=== PATIENT | female | born 1985 | race Caucasian/White ===

== ENCOUNTER 2017-09-23 14:35 | Outpatient (CLI) | payer OTHER ==
--- NOTE | 2017-09-23 17:17 | ULT ---
COMPLETE ULTRASOUND GREATER THAN 14 WEEKS: 09/23/17 HISTORY: Initial OB ultrasound, size and dates. A single viable intrauterine fetus noted in vertex presentation. The placenta is anterior. Amniotic f luid is within normal limits. heart rate is 140 beats per minute. The cervical length approxima mya 3.8 cm. ANATOMY: Visualized brain, four chamber heart, three vessel cord, stomach, bladder, kidneys, spine and e xtremities are unremarkable as visualized. BIOMETRY: BPD 4.6 cm - - 19 weeks, 5 days Head circumference 17.2 cm - - 19 weeks, 5 days Abdominal circumference 13.6 cm - - 19 weeks, 0 days Femur length 3.0 cm - - 19 weeks, 2 days IMPRESSION: Single viable intrauterine fetus at 19 weeks, 3 days gestation. EDC 02/14/18. Estimated weight 28 1 grams, 42nd percentile. POS: [facility]
== END 2017-09-23 14:36 | disposition home or self-care (01) ==
LOC: ULT 14:35
PROVIDERS: ATTEND Family Medicine
DX: Z34.82 Encounter for supervision of other normal pregnancy, second trimester (principal); Z3A.19 19 weeks gestation of pregnancy
CPT/HCPCS: 76805

== ENCOUNTER 2018-02-07 14:34 | Inpatient (IN) | payer OTHER ==
[~2018-02-07 14:34] MED LIST: Lidocaine 2% MPF 10 ML AMP (For Epidural Use) ONE
[2018-02-07] MEDS ORDERED: Lidocaine 1% (PF) 30 ML VIAL SC PRN (22:04)
[2018-02-07] MEDS ORDERED: Ibuprofen 800 MG TAB PO PRN (22:04)
[2018-02-07] MEDS ORDERED: Ondansetron HCl/PF 4 MG/2 ML Vial IVP PRN (22:04)
[2018-02-07] MEDS ORDERED: Misoprostol 200 MCG TAB PR PRN (22:04)
[2018-02-07] MEDS ORDERED: Acetaminophen 500 MG TAB PO PRN (22:04)
[2018-02-07] MEDS ORDERED: NS / Oxytocin 40 units/1000ml 1,000 ML IV PRN (22:04)
[2018-02-07] MEDS ORDERED: Promethazine HCl 25 MG/ML VIAL IM PRN (22:04)
[2018-02-07] MEDS ORDERED: Butorphanol Tartrate 1 MG/ML VIAL SLOW IVP PRN (22:04)
[2018-02-07] MEDS ORDERED: Acetaminophen/Codeine 30-300mg Tablet PO PRN (22:04)
[2018-02-07] MEDS ORDERED: HYDROcodone/Acetaminophen 5/325 mg Tablet PO PRN (22:04)
[2018-02-07] MEDS ORDERED: NS w/ Oxytocin 10 units 500 ML IV SCH (22:04)
[2018-02-07] MEDS ORDERED: Penicillin G Potassium 5 MILL.UNITS in Sodium Chloride 0.9% 100 ML IVPB SCH (22:30)
[2018-02-07] MEDS: Lactated Ringer's 1,000 ML IV SCH (22:30)
[2018-02-07 22:46] LABS: Hemoglobin 13.1 g/dL (12.0-16.0); Mean Corpuscular HGB CONC 34.3 g/dL (32.0-36.0); Mean Corpuscular Hemoglobin 31.5 pg (27.0-31.0); Mean Corpuscular Volume 91.8 fL (78.0-98.0); Mean Platelet Volume 8.2 fL (7.4-10.4); Platelet Count 228 thou/uL (130-400); RBC Distribution Width 11.9 % (11.5-14.5); Red Blood Cell (RBC) Count 4.16 mill/uL (4.20-5.40); White Blood Cell (WBC) Count 7.4 thou/uL (4.8-10.8)
[2018-02-07 23:24] LABS: Syphilis Antibody Nonreactive (Nonreactive); Syphilis Antibody Index 0.09 S/CO (<1.00 Non-Reactive)
[2018-02-08 00:46] LABS: HBSAg Index 0.18 S/CO (0-0.99); Hep B Surf Ag Non-Reactive S/CO (NonReactive)
[2018-02-08] MEDS: NS w/ Oxytocin 10 units 500 ML IV SCH ×2 (00:51→03:08)
[2018-02-08] MEDS: Penicillin G 2.5 MILL.units 2.5 MILL.UNITS in Premix Bag 1 BAG IVPB SCH ×3 (03:08→13:10)
[2018-02-08] MEDS ORDERED: DISCONTINUE ALL PREVIOUS NARCOTICS FS SCH (05:00)
[2018-02-08] MEDS ORDERED: Bupivacaine 0.75% 13.4 ML, fentaNYL Citrate/PF 400 MCG in Sodium Chloride 0.9% 78.6 ML EPIDURAL SCH (05:00)
[2018-02-08] MEDS: Lactated Ringer's 1,000 ML IV SCH (05:53)
[2018-02-08] MEDS ORDERED: ePHEDrine/0.9% NaCl/PF SYRINGE 50 mg/10 ml SLOW IVP PRN (05:54)
[2018-02-08] MEDS ORDERED: Lactated Ringer's 500 ML IV PRN (05:54)
[2018-02-08] MEDS ORDERED: Naloxone HCl 0.4 mg/ml Vial IVP PRN ×2 (05:54)
[2018-02-08] MEDS ORDERED: Promethazine HCl 25 MG/ML VIAL IM PRN (05:54)
[2018-02-08] MEDS ORDERED: diphenhydrAMINE 50 MG/ML VIAL IVP PRN (05:54)
[2018-02-08] MEDS ORDERED: Acetaminophen 325 MG TAB PO PRN (05:54)
[2018-02-08] MEDS ORDERED: Eucerin (Mineral Oil/Petrolatum,White) 30 gm Jar TOP PRN (05:54)
[2018-02-08] MEDS ORDERED: Ondansetron HCl/PF 4 MG/2 ML Vial IVP PRN ×2 (05:54→11:21)
[2018-02-08] MEDS ORDERED: fentaNYL Citrate/PF 400 MCG, Bupivacaine 0.5% 20 ML in Sodium Chloride 0.9% 72 ML EPIDURAL SCH (06:00)
[2018-02-08] MEDS ORDERED: Communication Order-Pharmacy FS SCH (06:00)
[2018-02-08] MEDS ORDERED: Methylergonovine 0.2 MG/ML VIAL ONE (07:37)
[2018-02-08] MEDS ORDERED: Lanolin Ointment 7 GM TUBE TOP PRN (11:21)
[2018-02-08] MEDS ORDERED: HYDROcodone/Acetaminophen 5/325 mg Tablet PO PRN (11:21)
[2018-02-08] MEDS ORDERED: Milk Of Magnesia 30 ML UDCUP PO PRN (11:21)
[2018-02-08] MEDS ORDERED: Preparation H Ointment 28 GM TUBE PR PRN (11:21)
[2018-02-08] MEDS ORDERED: Bisacodyl 10 MG SUPP PR PRN (11:21)
[2018-02-08] MEDS ORDERED: diphenhydrAMINE 25 MG CAP PO PRN (11:21)
[2018-02-08] MEDS ORDERED: Benzocaine/Menthol 20-0.5% 60 ML CAN TOP PRN (11:21)
[2018-02-08] MEDS ORDERED: Acetaminophen/Codeine 30-300mg Tablet PO PRN (11:21)
[2018-02-08] MEDS ORDERED: NS / Oxytocin 40 units/1000ml 1,000 ML IV SCH (11:21)
[2018-02-08] MEDS ORDERED: Prenatal Vitamin 1 TAB PO SCH (11:45)
[2018-02-08] MEDS ORDERED: Docusate Calcium (SURFAK) 240 MG CAP PO SCH (11:45)
[2018-02-08] MEDS ORDERED: Ferrous Sulfate 325 MG TAB PO SCH (11:45)
[2018-02-08] MEDS: Ibuprofen 800 MG TAB PO SCH ×2 (14:05→20:36)
[2018-02-08] MEDS: Ferrous Sulfate 325 MG TAB PO SCH (15:55)
[2018-02-08] MEDS: Docusate Calcium (SURFAK) 240 MG CAP PO SCH (20:36)
[2018-02-09] MEDS: Ibuprofen 800 MG TAB PO SCH (06:23)
[2018-02-09 08:13] VITALS: BP 110/59; TEMP 98.2
[2018-02-09] MEDS: Ferrous Sulfate 325 MG TAB PO SCH (08:34)
[2018-02-09] MEDS: Docusate Calcium (SURFAK) 240 MG CAP PO SCH (08:34)
[2018-02-09] MEDS ORDERED: Prenatal Vitamin 1 TAB PO SCH (09:00)
== END 2018-02-09 12:18 | disposition home or self-care (01) | DRG 775 ==
LOC: L&D 22:00 → 3SW 02-08 10:55
PROVIDERS: ADMIT Family Medicine; ATTEND Family Medicine
PROC: 10E0XZZ Delivery of Products of Conception, External Approach (ICD-10-PCS; principal; 2018-02-08)
PROC: 10907ZC Drainage of Amniotic Fluid, Therapeutic from Products of Conception, Via Natural or Artificial Opening (ICD-10-PCS; 2018-02-08)
DX: O36.5930 Maternal care for other known or suspected poor fetal growth, third trimester, not applicable or unspecified (principal); O34.211 Maternal care for low transverse scar from previous cesarean delivery; O70.0 First degree perineal laceration during delivery; Z3A.38 38 weeks gestation of pregnancy; Z37.0 Single live birth
CPT/HCPCS: 36415; 51702; 85027; 86780; 86850; 86900; 86901; 87340; J2001; J2210; J2540; J3010; J7050

== ENCOUNTER 2019-05-09 10:57 | Outpatient (CLI) | payer OTHER ==
--- NOTE | 2019-05-09 12:57 | ULT ---
US OB Complete STANDARD History: Evaluate anatomy Comparison: OB ultrasound September 23, 2017 Findings: Real-time grayscale, color, and spectral analysis of the gravid uterus was performed transa bdominal approach. Single viable intrauterine with average ultrasound age 21 week 4 day with estimated date of delivery September 25, 2019. Estimated weight is 15 ounces, 77th percentile. Biometry: Biparietal diameter: 21 week 5 day, 5.19 cm, 77th percentile Head circumference: 21 week 0 day, 18.66 cm, 40th percentile Abdominal circumference: 21 week 4 day, 16.48 cm, 61st percentile Femur length: 21 weeks 6 day, 3.71 cm, 70th percentile heart rate documented at 147 bpm. Amniotic fluid index: 14.2 cm Anatomy: The spine, bladder, diaphragm, kidneys, stomach, lateral ventricles, cerebellum, three-vesse l cord, posterior fossa, nose/lips, four-chamber heart, stomach are all normal. The placenta is posterior and the position is vertex. Impression: Normal single viable intrauterine .
== END 2019-05-09 10:58 | disposition home or self-care (01) ==
LOC: SCSULT 10:57
PROVIDERS: ATTEND Family Medicine
DX: Z34.82 Encounter for supervision of other normal pregnancy, second trimester (principal); Z3A.21 21 weeks gestation of pregnancy
CPT/HCPCS: 76805

== ENCOUNTER 2019-08-10 10:37 | Inpatient (IN) | payer OTHER ==
[2019-09-15] MEDS ORDERED: hydrALAZINE 20 MG/ML VIAL SLOW IVP PRN (14:41)
[2019-09-15] MEDS ORDERED: Ibuprofen 800 MG TAB PO PRN (14:41)
[2019-09-15] MEDS ORDERED: Promethazine HCl 25 MG/ML VIAL IM PRN ×2 (14:41→18:17)
[2019-09-15] MEDS ORDERED: Lidocaine 1% (PF) 30 ML VIAL SC PRN (14:41)
[2019-09-15] MEDS ORDERED: NS w/ Oxytocin 10 units 500 ML IV SCH ×2 (14:41)
[2019-09-15] MEDS ORDERED: Ondansetron PF 4 MG/2 ML Vial IVP PRN ×2 (14:41→18:17)
[2019-09-15] MEDS ORDERED: HYDROcodone/Acetaminophen 5/325 mg Tablet PO PRN (14:41)
[2019-09-15] MEDS ORDERED: Misoprostol 200 MCG TAB PR PRN (14:41)
[2019-09-15] MEDS ORDERED: Acetaminophen 500 MG TAB PO PRN (14:41)
[2019-09-15] MEDS ORDERED: Butorphanol Tartrate 1 MG/ML VIAL SLOW IVP PRN (14:41)
[2019-09-15] MEDS ORDERED: Methylergonovine 0.2 MG/ML VIAL IM PRN (14:41)
[2019-09-15] MEDS ORDERED: Acetaminophen/Codeine 30-300mg Tablet PO PRN (14:41)
[2019-09-15] MEDS ORDERED: NS / Oxytocin 40 units/1000ml 1,000 ML IV PRN (14:41)
[2019-09-15] MEDS ORDERED: Penicillin G Potassium 5 MILL.UNITS in Sodium Chloride 0.9% 100 ML IVPB SCH (14:45)
[2019-09-15 15:07] VITALS: BMI 26.6
[2019-09-15 15:21] LABS: Hemoglobin 12.2 g/dL (12.0-16.0); Mean Corpuscular Hemoglobin 30.7 pg (27.0-31.0); Mean Corpuscular Volume 90.2 fL (78.0-98.0); Mean Platelet Volume 9.1 fL (7.4-10.4); Platelet Count 227 thou/uL (130-400); Red Blood Cell (RBC) Count 3.99 mill/uL (4.20-5.40); White Blood Cell (WBC) Count 8.1 thou/uL (4.8-10.8)
[2019-09-15] MEDS: Lactated Ringer's 1,000 ML IV SCH ×2 (16:06→19:23)
[2019-09-15 16:07] LABS: HBSAg Index 0.33 S/CO (0-0.99); Hep B Surf Ag Non-Reactive S/CO (NonReactive)
[2019-09-15 16:14] LABS: Syphilis Antibody Nonreactive (Nonreactive); Syphilis Antibody Index 0.06 S/CO (<1.00 Non-Reactive)
[2019-09-15] MEDS ORDERED: Fentanyl 100 MCG/2 ML VIAL ONE (17:37)
[2019-09-15] MEDS ORDERED: Bupivacaine 0.5% 10 ML VIAL ONE (17:37)
[2019-09-15] MEDS ORDERED: Fentanyl 4 mcg/Bup 0.1% Cadd 100 ML ONE (17:38)
[2019-09-15] MEDS ORDERED: Fentanyl 100 MCG/2 ML VIAL I-THECAL ONE (18:16)
[2019-09-15] MEDS ORDERED: EPHEDRINE 25 MG/5 ML SYRINGE SLOW IVP PRN (18:17)
[2019-09-15] MEDS ORDERED: diphenhydrAMINE 50 MG/ML VIAL IVP PRN (18:17)
[2019-09-15] MEDS ORDERED: Acetaminophen 325 MG TAB PO PRN (18:17)
[2019-09-15] MEDS ORDERED: Naloxone HCl 0.4 mg/ml Vial IVP PRN ×2 (18:17)
[2019-09-15] MEDS ORDERED: Lactated Ringer's 500 ML IV PRN (18:17)
[2019-09-15] MEDS ORDERED: Bupivacaine 0.25% 10 ML VIAL EPIDURAL ONE (18:17)
[2019-09-15] MEDS ORDERED: Communication Order-Pharmacy FS SCH (18:30)
[2019-09-15] MEDS: Penicillin G 2.5 MILL.units 2.5 MILL.UNITS in Premix Bag 1 BAG IVPB SCH (19:57)
[2019-09-16] MEDS ORDERED: diphenhydrAMINE 25 MG CAP PO PRN (01:17)
[2019-09-16] MEDS ORDERED: Benzocaine-Menthol 82.5 ML CAN TOP PRN (01:17)
[2019-09-16] MEDS ORDERED: Bisacodyl 10 MG SUPP PR PRN (01:17)
[2019-09-16] MEDS ORDERED: HYDROcodone/Acetaminophen 5/325 mg Tablet PO PRN (01:17)
[2019-09-16] MEDS ORDERED: Milk Of Magnesia 30 ML UDCUP PO PRN (01:17)
[2019-09-16] MEDS ORDERED: Ondansetron PF 4 MG/2 ML Vial IVP PRN (01:17)
[2019-09-16] MEDS ORDERED: Lanolin Ointment 7 GM TUBE TOP PRN (01:17)
[2019-09-16] MEDS ORDERED: Acetaminophen/Codeine 30-300mg Tablet PO PRN (01:17)
[2019-09-16] MEDS ORDERED: Preparation H Ointment 28 GM TUBE PR PRN (01:17)
[2019-09-16] MEDS ORDERED: NS / Oxytocin 40 units/1000ml 1,000 ML IV SCH (01:17)
[2019-09-16] MEDS ORDERED: hydrALAZINE 20 MG/ML VIAL SLOW IVP PRN (01:17)
[2019-09-16] MEDS ORDERED: Docusate Calcium (SURFAK) 240 MG CAP PO SCH (01:30)
--- NOTE | 2019-09-16 03:34 | PDOC.PP ---
Post Progress Note Post Day #: 0 to 1 Subjective: doing well, still in L&D PO intake tolerated: yes Flatus: yes Ambulation: yes Weight Weight 170 lb Vitals reviewed in QS Occasional BPs of 140-150 noted but last was wnl - Physical Examination General: NAD Respiratory: non-labored breathing Abdominal: no distention, appropriately TTP Extremities: negative homans (B) Neurological: no gross focal deficits Psychiatric: A&Ox3, normal affect Result Diagrams: 09/15/19 15:03 Additional Labs: Post Labs Blood Type O POSITIVE 09/15/19 15:03 Hep Bs Antigen Non-Reactive S/CO (NonReactive) 09/15/19 15:03 (1) Vaginal delivery Code(s): O80 - ENCOUNTER FOR FULL-TERM UNCOMPLICATED DELIVERY Status: Acute (2) (vaginal after ) Code(s): O34.219 - MATERNAL CARE FOR UNSP TYPE SCAR FROM PREVIOUS DEL Status: Acute - Assessment/Plan PPD 0 to 1 s/p successful . Routine obs for now. Pt still in L&D, awaiting pp bed on [place] Follow BPs for now, too low for meds at this time...asx
[2019-09-16] MEDS: Ibuprofen 800 MG TAB PO SCH ×3 (05:49→17:13)
[2019-09-16] MEDS: Ferrous Sulfate 325 MG TAB PO SCH ×2 (09:08→11:39)
[2019-09-16] MEDS: Docusate Calcium (SURFAK) 240 MG CAP PO SCH ×2 (09:09→22:24)
[2019-09-16] MEDS: Prenatal Vitamin 1 TAB PO SCH (09:09)
[2019-09-16] MEDS: Penicillin G 2.5 MILL.units 2.5 MILL.UNITS in Premix Bag 1 BAG IVPB SCH (11:35)
[2019-09-17] MEDS: Ibuprofen 800 MG TAB PO SCH ×2 (04:05→09:17)
--- NOTE | 2019-09-17 07:00 | PDOC.PP ---
Post Progress Note Post Day #: 2 PO intake tolerated: yes Flatus: yes Ambulation: yes Vital Signs (12 hours) Temp Pulse Resp BP 09/16/19 20:00 97.9 F 65 18 136/82 Weight Weight 170 lb - Physical Examination General: NAD Cardiovascular: no m/r/g, RRR Abdominal: lochia Neurological: no gross focal deficits (doing well desires dc home) Result Diagrams: 09/15/19 15:03 Additional Labs: Post Labs Blood Type O POSITIVE 09/15/19 15:03 Hep Bs Antigen Non-Reactive S/CO (NonReactive) 09/15/19 15:03
[2019-09-17] MEDS: Ferrous Sulfate 325 MG TAB PO SCH (07:34)
[2019-09-17 08:23] VITALS: BP 130/81; TEMP 98.6
[2019-09-17] MEDS: Prenatal Vitamin 1 TAB PO SCH (09:17)
[2019-09-17] MEDS: Docusate Calcium (SURFAK) 240 MG CAP PO SCH (09:17)
== END 2019-09-17 13:30 | disposition home or self-care (01) | DRG 807 ==
LOC: EDSTATUS 15:02 → L&D 09-15 14:15 → 3SW 09-16 11:23
PROVIDERS: ADMIT Family Medicine; ATTEND Family Medicine
PROC: 10E0XZZ Delivery of Products of Conception, External Approach (ICD-10-PCS; principal; 2019-09-15)
PROC: 10907ZC Drainage of Amniotic Fluid, Therapeutic from Products of Conception, Via Natural or Artificial Opening (ICD-10-PCS; 2019-09-15)
PROC: 3E0P7VZ Introduction of Hormone into Female Reproductive, Via Natural or Artificial Opening (ICD-10-PCS; 2019-09-15)
PROC: 3E033VJ Introduction of Other Hormone into Peripheral Vein, Percutaneous Approach (ICD-10-PCS; 2019-09-15)
DX: O34.211 Maternal care for low transverse scar from previous cesarean delivery (principal); Z37.0 Single live birth; O99.824 Streptococcus B carrier state complicating childbirth; O71.82 Other specified trauma to perineum and vulva; Z3A.39 39 weeks gestation of pregnancy
CPT/HCPCS: 36415; 51702; 85027; 86780; 86850; 86900; 86901; 87340; J2540; J2590; J3010; J3490